=== PATIENT | male | born 1940 | race Caucasian/White ===

== ENCOUNTER 2019-04-16 05:20 | Inpatient (IN) | payer MEDICARE, SELFPAY ==
[2019-04-02 10:59] VITALS: BP 133/70; PULSE 61; RESP 16; TEMP 36.7; O2SAT 98; BMI 33.4
[2019-04-02 11:55] LABS: Absolute Lymphocyte Count 2.32 X10^3/uL (0.83-4.51); Absolute Neutrophil Count 5.7 X10^3/uL (2.0-7.7); Basophil# 0.05 X10^3/uL; Basophil% 0.5 % (0-1); Eosinophil# 0.15 X10^3/uL; Eosinophils% 1.6 % (0-5); Hemoglobin 14.4 g/dL (13.0-16.5); Lymphocyte # 2.32 X10^3/ul (4.0); Lymphocyte % 25.4 % (19-41); Mean Corp Hgb Conc 32.7 g/dL (32-36); Mean Corpuscular Hgb 28.9 pg (27.0-32.0); Mean Corpuscular Volume 88.4 fL (80-94); Mean Platelet Vol. 10.1 fl (6.2-12.0); Monocyte# 0.91 X10^3/uL; NRBC Flagged by Analyzer 0 % (0-5); Neutrophil # 5.67 X10^3/uL (2.7-7.7); Neutrophil % 62.2 % (47-70); Platelet Count 221 K/mm3 (150-450); RBC Distribution Width CV 12.7 % (11.6-14.6); RBC Distribution Width SD 41.2 fl (35.1-43.9); Red Blood Count 4.98 M/mm3 (4.6-6.2); White Blood Count 9.1 K/mm3 (4.4-11.0)
[2019-04-02 12:16] LABS: Anion Gap 8 (5-15); BUN 12 mg/dL (7-18); BUN/Creat Ratio 15.8 RATIO (10-20); Calcium,Total 8.5 mg/dL (8.5-10.1); Chloride 101 mmol/L (98-107); Creatinine, Serum 0.76 mg/dL (0.70-1.30); EST Glomerular Filtration Rate 106 mL/min (>60); Est Glom Filt Rate - Afr Amer 128 mL/min (>60); Estimated Creatinine Clearance 46.49 ml/min; Glucose 99 mg/dL (74-106); Potassium 4.2 mmol/L (3.5-5.1); Sodium Level 136 mmol/L (136-145)
--- NOTE | 2019-04-02 23:07 | HP.PCM_ITS ---
History and Physical History and Physical Patient Name: Tomás Mariscal : 1940 From: EVANGELINA ESPINAL PA-C DATE OF SURGERY: 04/16/2019 SCHEDULED PROCEDURE: left reverse total shoulder arthroplasty HISTORY OF PRESENT ILLNESS: Preoperative history and physical exam was performed on April 02, 2019. This is a 78-year-old male who has been having ongoing pain in his left shoulder. Pain is increased with any overhead activity. Patient is right-hand dominant. Pain does wake him occasionally at night. He has pain over the anterior should er. His limited motion and pain has now significantly affected his activities of daily living. Conservative measures consisting of physical therapy and cortisone injection with no relief. Patient currently denies chest pain, shortness of breath, fevers chills, recent infections. We have obtain surgical clearance from patient's primary care physician Dr. Galvan. Patient has a medical history pertinent for hypertension, asthma, sleep apnea, hypercholesterolemia, history of gout, benign prostatic hyperplasia, essential tremor. Patient has had chest x-ray, CT scan of the thorax by primary care physician. Patient does have moderate persistent asthma in which he is currently on medications. After failing conservative measures and discussing treatment options with Dr. Ulices Mcghee, the patient does wish to proceed with left reverse total shoulder arthroplasty. REVIEW OF SYSTEMS: ROS: Const: Denies change in appetite, fever and weight change. CV: Denies chest pain, heart murmur and irregular heartbeat. Resp: Reports cough, pneumonia, shortness of breath and wheezing, but denies tuberculosis. GI: Denies constipation, diarrhea, heartburn, nausea, rectal itching, bloody stools and vomiting. : Denies incontinence. Musculo: Reports weakness, but denies leg swelling and pain. Skin: Denies Raynaud's, history of shingles and tattoo. Neuro: Reports numbness/tingling but denies ambulatory dysfunction, dizziness and tremor. Psych: Denies anxiety, insomnia and stress. Eduin/Lymph: Denies anemia, bleeding/bruising tendency and past transfusion. Reviewed, no changes. PAST MEDICAL HISTORY: Advance Care Plan: Other Directive, POA Effective Date: 11/07/2018 Other Directive, LIVING WILL Effective Date: 11/07/2018 PMH: Medical Problems: Arthritis, Asthma, Emphysema, Gout, High Blood Pressure, Hypercholesterolemia, Sleep Apnea Accidents: None Surgical Hx: None Anesthesia Complications: None Assistive Devices: Glasses Reviewed, no changes. SOCIAL HISTORY: SH: Marital: .Occupation: Retired.Work Status: Retired.Hand Dominance: Right- handed. Personal Habits: Cigarette Use: Never Smoked Cigarettes.Smokeless Tobacco: Never Used Smokeless Tobacco.E-Cigarette Use: Never used.Alcohol: Weekly use.Drug Use: Denies Use.Enjoy Exercising: Daily. Reviewed and updated. VITALS: Ht: 61 Wt: 176lb Wt k.834 BMI: 33.3 BP: 138/74 Pulse: 74 Resp: 20 T: 96.8 T: 36.0C ALLERGIES: No Known Drug Allergy MEDICATIONS: Aspir-81 81 mg 1po qday, Super B-Complex 1po qday, Metoprolol Succinate ER 100 mg 1po qday, Atorvastatin Calcium 40 mg 1po qday, Amlodipine Besylate 5 mg 1po qday, Primidone 50 mg 2po qday, Multivitamin Adult 1 by mouth every day, Ventolin HFA 108 (90 Base) mcg/Act daily, Prednisone 10 mg as needed, Fluticasone Nasal [place] daily PRE-OP EXAM: General appearance:NORMAL Other: Eyes: Conjunctivae and lids: NORMAL Pupils: ERR Ears, Nose, Mouth, and Throat: NORMAL Other: Inspection of lips, teeth and gums: NORMAL Other: Neck: Examination of neck: no masses noted. Respiratory: Assessment of respiratory effort: NORMAL Other: Auscultation of lungs: clear to auscultation with wheezing on expiration, no rhonchi or rales. Cardiovascular: Auscultation of heart: regular rate and rhythm, no murmurs, gallops or rubs. Gastrointestinal: Exam of abdomen: soft, nontender, nondistended bowel sounds present. PHYSICAL EXAMINATION: Left shoulder is cold to touch without erythema or signs of infection. Patient does have tenderness to palpation of the anterior lateral left shoulder. Range of motion: Active forward elevation 60 on the left and passively 130, internal rotation L5 on the left and L3 on the right, external rotation 30 on the left and 40 on the right. Supraspinatus strength 3/5 on the left and 5/5 on the right. There is scapular dyskinesia on the left. Sensation intact to light touch. Neurovascularly intact. IMAGING STUDIES: Previous x-rays and MRI reveal severe rotator cuff tear arthropathy with retracted supraspinatus to the level of the glenohumeral joint with 70% fatty atrophy. X-rays reveal joint space narrowing with superior migration of the humeral head with subchondral sclerosis seen and Seen lesions on the undersurface of the acromion and lateral tuberosity. IMPRESSION: 1. Severe left shoulder glenohumeral osteoarthritis 2. Hypertension 3. Moderate persistent asthma 3. Sleep apnea 4. History gout 5. Hypercholesterolemia 6. Benign prostatic hyperplasia 7. Essential tremor PLAN: Dr. Ulices Mcghee did discuss and review with the patient all treatment options including surgical versus nonsurgical options. Patient does wish to proceed with the above-stated procedure. Potential risks, benefits, and complications of the procedure were discussed in detail including but not limited to , infection, nerve and blood vessel damage, persistent pain, numbness, tingling, paresthesias, blood clot, pulmonary embolism, and requirement for possible further surgery. The patient expressed full understanding and has no further questions for the doctor. Patient does agree to proceed with the above-stated procedure and has signed the surgery consent form. This dictation was created using voice recognition software. Phonetic and/or grammatical errors may exist. ___ I have re-examined the patient. There are no clinical changes since date of exam. ___ See progress notes for changes. ___ Dictated on admission Date: Time: Signature:
[2019-04-16] VITALS (16 sets, daily range): BP systolic 118–159; BP diastolic 61–82; PULSE 66–102; RESP 16–20; TEMP 36.3–37; O2SAT 88–100; BMI 33.4
[2019-04-16] MEDS: Lactated Ringers 1,000 ML 100 ML IV (06:05)
[2019-04-16] MEDS: Magnesium Sulfate 4gm/100mL 4 GM/100 ML IV.SOLN. IV (06:05)
[2019-04-16] MEDS: Celecoxib 200 MG Capsule 400 MG PO (06:06)
[2019-04-16] MEDS: Acetaminophen 500 MG Tablet 1000 MG PO ×3 (06:06→21:33)
[2019-04-16] MEDS: Gabapentin 600 MG Tablet PO (06:08)
[2019-04-16 06:35] LABS: Bedside Glucose 104 mg/dL (70-110)
--- NOTE | 2019-04-16 06:55 | RAD_ITS ---
STUDY: X-RAY - LEFT SHOULDER REASON FOR EXAM: Male, 78 years old. Total shoulder replacement. TECHNIQUE: 2 view(s) of the shoulder. COMPARISON: None. FINDINGS: The patient is status post left shoulder replacement. There is good alignment. Postoperative soft tissue changes. Mild increased markings at the left lung base suggestive of atelectasis. RAD/Shoulder min 2 Views IMPRESSION: Status post left shoulder replacement. There is good alignment. Postoperative soft tissue changes. Increased markings at the left lung base suggestive of atelectasis. Electronically Signed: Camilo Bolden, at 9:55 EST , Service support ,
[2019-04-16] MEDS: Cefazolin 2 GM in 0.9% Normal Saline 100 ML IV (07:12)
[2019-04-16] MEDS: dexAMETHasone 10 MG/ML Vial IV (07:42)
[2019-04-16] MEDS: Lactated Ringers 1,000 ML 125 ML IV (08:00)
--- NOTE | 2019-04-16 08:23 | OP.PCM_ITS ---
Report of Operation Date of Procedure: 04/16/19 Pre-Operative Diagnosis: Left shoulder cuff tear arthropathy Post-Operative Diagnosis: Left shoulder cuff tear arthropathy Surgery/Procedure Performed:: Left reverse total shoulder replacement Description of Surgical Findings:: Stable shoulder, subscapularis repaired investment accounting clerk: Alondra Solis Type of Anesthesia:: General Anesthesiologist: Quinton Walker Special Medications: 2 g Ancef, 1 g TXA at incision, 1 g TXA closure, 10 mg Decadron, joint cocktail (5 mg Duramorph, 30 mL of 0.5% Ropivicaine, 1000 units of epinephrine, 30 mg of Toradol), vancomycin at incision Specimen's removed: Bony cuts Estimated Blood Loss (mL): 100 Fluids Replaced: 300 mL crystalloid Description of Procedure: Components used 1. Maddi reunion glenoid baseplate 2. 36mm, +2 mm Glenosphere 3. 36mm, 4mm humeral liner 4. Reverse TSA humeral adapter tray 4]mm 5. [place] reunion short humeral stem primary press-fit 14mm size Brief history/Operative indications: 78 yo m with history of L shoulder pain and cuff tear arthropathy. Patient failed conservative measures as mentioned in the H&P. After discussion of risk and benefits of reverse total shoulder replacement including but not limited to blood loss, DVTs, PEs, nerve vessel damage, infection, general risk of anesthesia including loss of life, instability and stiffness patient demonstrating understanding wish to proceed was able to sign informed consent. Medical clearance was obtained. Procedure: On the date of the procedure, patient's L upper extremity was marked in the preoperative area. Patient was taken back to the operating room where they were placed on the table in the supine position. Anesthesia assumed control of the C-spine and airway, then administered anesthetic. All bony prominences were identified well-padded, the head was secured and the patient was placed in the beachchair position at about 35? inclination. Anesthesia remained in control of the C-spine airway throughout the remainder of the procedure. Patient was then appropriately fastened to the table and the L upper extremity was prepped in a sterile fashion. The surgeons then scrubbed. Upon reentering the room, the L upper extremity was draped in a sterile fashion and the incision was marked out. Timeout was called, everyone agreed upon the side, the site, the procedure to be performed, patient identity and antibiotics given. Incision was taken down through skin and subcutaneous tissue, fat down to fascia. The stripe of the deltopectoral interval and cephalic vein were identified and blunt dissection was used to retract the deltoid. The cephalic vein was retracted laterally. Clavipectoral fascia was then incised and a cobra retractor was placed in the wound. The proximal one third of the pectoralis major insertion was released. Pectoralis tendon insertion was used to tenodesed the biceps tendon which was identified in the bicipital groove. Tenodesis was done with #1 Vicryl. Proximally we followed the biceps tendon after transecting it into the rotator interval. The rotator interval was split and the arm was externally rotated. The split was 1 cm medial to the bicipital groove. Subscapularis tendon was released. We released down the anterior portion of the humeral head and a peck elevator was used to release the inferior portion of the humeral head. The arm was externally rotated and the shoulder was dislocated. The humeral head cut was made at anatomic retroversion. Once his humeral head cut was made humerus was retracted out of the way and the glenoid was exposed. After exposing the glenoid, the labrum and the remaining proximal biceps were debrided. At this time we are able to view the entire outer edge of the glenoid. A central pin was placed we sequentially reamed over this central pin to 36mm. Once this was completed the central pedicle was drilled. The glenoid baseplate was impacted into place. Wound was closely irrigated out with normal saline we then drilled sequentially for 2 screws. Screws were placed superiorly and inferiorly and tightened down the screws. Once the screws were appropriately tightened into place the glenoid baseplate was compressed against the exposed subchondral bone. A 36, +2 mm glenosphere was impacted into place engaging the [place] taper. Attention was then turned towards the humerus. The humerus was again externally rotated exposing the proximal portion of the humerus. Central canal finder was then used to open up the canal. We reamed to a 14mm reamer. We then broached to a 14mm stem. We trialed the 4mm liner, with the 4mm humeral baseplate. We obtained an adequate reduction at this time with a nice stable shoulder. Good internal rotation to the gluteus, forward elevation to 140?, external rotation to 30?. Final components were then assembled on the back table, trials were removed and the wound was copiously irrigated with normal saline after dislocating the shoulder. Once the final components were assembled they were impacted into place. Shoulder was then reduced and found to be stable with good range of motion. Subscapularis tendon was repaired. The wound was then lavaged with chlorhexidine for 1 minute followed by copiously irrigated out with a 1 L normal saline lavage. The deltopectoral fascia was then closed using #1 Vicryl skin was closed using 2-0 Vicryl interrupted sutures and final skin closure was done with 3-0 Monocryl. Steri-Strips are placed for final skin closure. Sterile dressing was placed patient was then placed in a sling and awakened by anesthesia. Patient was then transferred to the PACU for recovery. Postoperative plan: Patient will be admitted to the hospital overnight. They will get physical therapy starting in 2 weeks with normal postoperative regimen. Patient will be placed on aspirin daily for DVT prophylaxis. The first postoperative appointment will be in 2 weeks for wound check and initiation of phase 1 physical therapy. During the course of the procedure the physician faculty i on call medical assistant played a vital role. His intimate knowledge of my steps in the procedure aided in safe and expedient completion of the procedure. The PA played a vital rolls in positioning particularly in obtaining the appropriate beach chair position and securing the patient's body and head to the table. The PA was also vital in the retraction of soft tissues during the exposure and especially the glenoid work as this is a vital part of the procedure to prevent neurovascular damage. the PA was also vital and protecting soft tissues during times of bony cuts and reaming. He also played a vital role in closure with my direct supervision. The PA was also important during reduction and dislocation of the joint and trials intraoperatively. Grafts/Implants Used: Maddi reunion - Complications No intraoperative complications - Admit VTE Documentation VTE Present on Admission: No VTE Mechan Device Prophylaxis: SCD's, Knee High STEPHANIE Hose VTE Pharm Prophylaxis ordered?: Yes
[2019-04-16] MEDS: Ipratropium/Albuterol Sulfate 3 ML AMPUL.NEB INHALATION ×2 (12:26→19:35)
--- NOTE | 2019-04-16 13:43 | NURSING ---
Patient's pulse ox alarm was ringing in the 80's. Went in to check on patient and he was resting comfortably with eyes closed. This RN informed patient of alarm and that we needed to turn 02 up 1-2 L to get Sp02 higher. While in room checked vs, see intervention. Pulse ox was not able to be brought up with just a nasal cannula so the simple mask from surgery was placed and turned on to 8L. Pulse ox was still 81-82%. Jason from [facility] was called to room and he placed patient on a 100% non-rebreather mask. after being on mask for 3-4 minutes patient's 02 level gradually increased to 96-97%. Dr. Mcghee has been paged to update. Patient continues to sound moist, with extremely coarse lung sounds. RR easy and nonlabored t/o. Encouraged coughing and I/S.
--- NOTE | 2019-04-16 14:04 | CASEMGMT ---
As per pre-behavior specialist, pt has LW/POA and is his medical POA, declined to bring in the documents. ZACH Pitts
--- NOTE | 2019-04-16 14:28 | NURSING ---
Received call from Henrry Chaney and nurse Kayley was on the phone on behalf of Dr. Mcghee who was in surgery. This RN made him aware that patient was on a non-rebreather, 100% and 02 sats were 97%. His RR is 20-22, IVF have been SL. He ordered this nurse to stop ivf and consult medicine (he states he is scrubbed in surgery and will not be able to do a MD to MD consult at this time.) Dr. Everett was paged and made aware of same. He came to see patient. CXR, EKG and 40 mg lasix iv x1 was ordered.
--- NOTE | 2019-04-16 14:44 | EKG12_ITS ---
Test Reason : Blood Pressure : / mmHG Vent. Rate : 093 BPM Atrial Rate : 093 BPM P-R Int : 230 ms QRS Dur : 138 ms QT Int : 368 ms P-R-T Axes : 045 000 -08 degrees QTc Int : 457 ms Sinus rhythm with 1st degree A-V block Right bundle branch block Abnormal ECG No previous ECGs available Confirmed by MARILUZ CARVER, KENYON ([id number]), editor index KENNETH HILL ([id number]) on 04/20/2019 10:32:37 AM Referred By: Ulices Mcghee Confirmed By:VINCENT MCGRAW MD
--- NOTE | 2019-04-16 15:04 | CON.PCM_ITS ---
Problem List (1) Hypoxia Status: Acute (2) Status post reverse total arthroplasty of left shoulder Status: Acute (3) Emphysema of lung Status: Chronic (4) Asthma Status: Chronic (5) Hyperlipidemia Status: Chronic (6) Hypertension Status: Chronic Reason for Consult Date of Consultation: 04/16/19 Reason for Consultation: Postoperative hypoxia. History of Present Illness: The patient is a 78 year old M patient with past medical history as mentioned above who underwent elective left reverse total shoulder replacement today and I am seeing this patient in urgent consultation for postoperative hypoxia. According to the nursing staff, patient was on facemask and his pulse ox was in the 80s percent. He was started on nonrebreather mask and his oxygenation improved. Patient denied any significant worsening shortness of breath. He reported cough with difficulty expectorating sputum. He denied chest pain, palpitation, dizziness or lightheadedness. He denied fever or chills. He denies any significant left shoulder pain. He had a history of hypertension which has been under control with Norvasc and metoprolol. He has history of asthma and emphysema and he has been using inhalers and nebulizers at home in cluding DuoNeb, albuterol, Ellipta. He never been on oxygen at home and he never smoked in his life. He has history of hyperlipidemia and he has been on statins. At this time, patient is afebrile, blood pressure and heart rate are stable, not tachycardic or tachypneic, pulse ox is 97% on nonrebreather mask with 100% FiO2. Preoperative routine blood work that was done on April 10, 2019 reviewed and was unremarkable. Stat EKG done and showed normal sinus rhythm, first-degree AV block, RBBB without evidence of acute ischemic changes or cardiac arrhythmias. Patient chest x-ray done and revealed mild bilateral pulmonary vascular congestion. Past Medical History Past Medical History (Chronic Problems): Chronic Problems Emphysema of lung (Chronic) Asthma (Chronic) Hyperlipidemia (Chronic) Hypertension (Chronic) Allergies No Known Allergies Allergy (Verified 04/16/19 05:51) Home Medications: Ambulatory Orders Medication Instructions Recorded Albuterol Inhaler [Ventolin Hfa 2 puff INHALATION Q4H PRN PRN 04/02/19 (SP)] Amlodipine [Norvasc] 5 mg PO DAILY 04/02/19 Aspirin [Aspir-Low] 81 mg PO DAILY 04/02/19 Atorvastatin Calcium [Lipitor] 40 mg PO QHS 04/02/19 Cholecalciferol (VIT D3) [Vitamin 1,000 unit PO DAILY 04/02/19 D] Fluticasone 0.05% [Flonase Nasal 2 spray NASAL DAILY 04/02/19 [place]] Fluticasone/Umeclidin/Vilanter 1 puff IH DAILY 04/02/19 [Trelegy Ellipta 100-62.5-25] Ipratropium/Albuterol Sulfate 3 ml INHALATION Q6HWA.RT 04/02/19 [Duoneb] Metoprolol Tartrate [Lopressor 100 mg PO DAILY 04/02/19 (Beta Jahaira)] Multivitamin [Daily Vitamin 1 ea PO DAILY 04/02/19 Formula] Prednisone 10 mg PO PRN PRN 04/02/19 Primidone [Mysoline] 50 mg PO BID 04/02/19 Surgical History: no surgical history - Apart from today's surgery. Psychiatric History: No pertinent psych hx Lives: Spouse/ Significant Other Smoking Status: Never smoker Tobacco Use: Non-smoker Alcohol: None Drugs: None - *Family History Maternal History Items: No pertinent history Paternal History Items: No pertinent history Review of Systems Constitutional: Denies: Anorexia, Chills, Fever, Weakness Eyes: Denies: Blurred vision, Double vision, Drainage, Redness HEENT: Denies: Difficulty Hearing, Ear Pain, Eye Pain, Nasal Congestion, Sore Throat Cardiovascular: Denies: Chest Pain, Chest Pressure, Chest Tightness, Edema, Light Headedness, Palpitations, Syncope Respiratory: Reports: Cough. Denies: Pleuritic Pain, Shortness of Breath, Spu travis production, Wheezing Gastrointestinal: Denies: Abdominal Pain, Constipation, Diarrhea, Nausea, Vomiting Genitourinary: Denies: Dysuria, Frequency, Hematuria Musculoskeletal: Denies: Arm Pain, Back Pain, Foot Pain Skin: Denies: Dryness, Rash Neurological: Denies: Balance problems, Double vision, Change in Speech, Slurred speech, Confusion, Headaches, Incoordination, Numbness Psychiatric: Denies: Anxiety, Depression Endocrine: Denies: Change in Body Habitus, Polydipsia, Polyuria Patient Problems: Active and Suspected Problems Hypoxia (Acute) Status post reverse total arthroplasty of left shoulder (Acute) - Physical Exam Vitals/I&O's: Vital Signs Temp Pulse Resp BP Pulse Ox 98.1 F 86 20 H 118/62 97 04/16/19 14:28 04/16/19 14:28 04/16/19 14:28 04/16/19 14:28 04/16/19 14:28 Oxygen Flow Rate (L/min) 2 Oxygen Delivery Method Non-Rebreather Weight: 177 lb 0.499 oz Body Mass Index (BMI) 33.4 Intake and Output for Last 24 Hours 04/14/19 04/15/19 04/16/19 23:59 23:59 23:59 Intake Total 1904 Balance 1904 General: Alert, Oriented x3, Cooperative, No apparent distress HEENT: Atraumatic, PERRLA, EOMI, Normocephalic Oral: Moist Mucosa, No Gingival or Mucosal Lesions/ Ulcerations Neck: Supple, No JVD, Negative Carotid Bruits, Trachea Midline, Thyroid Normal Size and Texture Lungs: No wheeze, Diminished, Rales, Rhonchi, - - Decreased breath sounds b ilateral, bilateral crackles, rhonchi. Cardiovascular: Regular rate, Regular Rhythm, Normal S1, Normal S2, PMI Normal Abdomen: Bowel Sounds Present, Soft, Non Tender, Non-Distended, No Hepato- splenomegaly Extremities: No clubbing, No cyanosis, No edema Skin: No rashes, No breakdown Lymphatic: No Cervical, Supraclavicular, or Inguinal Adenopathy Neurological: Cranial nerves II-XII grossly intact, Motor Exam 5/5 strength throughout Psych/Mental Status: Normal Affect, Appropriate, Alert and oriented to time, place, person, mood and affect Laboratory Results 04/16/19 06:12: POC Glucose 104 Clinical Impression(s) from Imaging Studies Shoulder X-Ray 04/16/19 06:55 IMPRESSION: Status post left shoulder replacement. There is good alignment. Postoperative soft tissue changes. Increased markings at the left lung base suggestive of atelectasis. Electronically Signed: Camilo Bolden, at 9:55 EST , Service support , Current Medications Acetaminophen (Tylenol) 1,000 mg PO Q8 MARITZA Albuterol Sulfate (Ventolin Aerosols) 2.5 mg INHALATION Q4H PRN PRN PRN Reason: WHEEZING Albuterol/Ipratropium (Duoneb) 3 ml INHALATION Q6HWA.RT REPLACED BY [facility] Last Admin: 04/16/19 12:26 Dose: 3 ml Documented by: Amlodipine Besylate (Norvasc) 5 mg PO DAILY REPLACED BY [facility] Aspirin (Ecotrin) 325 mg PO DAILY@0800 REPLACED BY [facility] Atorvastatin Calcium (Lipitor) 40 mg PO QHS REPLACED BY [facility] Budesonide (Pulmicort Aerosol) 0.5 mg INHALATION Q12H.RT REPLACED BY [facility] Cholecalciferol (Vitamin D) 1,000 unit PO DAILYCM REPLACED BY [facility] Enteral Nutritional Formula (Ensure Surgery) 237 ml PO TIDCM REPLACED BY [facility] Famotidine (Pepcid) 20 mg PO DAILY REPLACED BY [facility] Fluticasone Propionate (Flonase Nasal [place]) 2 spray NASAL DAILY REPLACED BY [facility] Cefazolin Sodium () 1 gm in 50 mls @ 150 mls/hr IV Q8H REPLACED BY [facility] Stop: 04/16/19 23:19 Ketorolac Tromethamine (Toradol) 15 mg IV Q6H PRN PRN PRN Reason: Pain Score 1-5/10 Stop: 04/18/19 06:56 Meloxicam (Mobic) 7.5 mg PO BID REPLACED BY [facility] Metoprolol Tartrate (Lopressor (Beta Jahaira)) 100 mg PO DAILY REPLACED BY [facility] Morphine Sulfate () 2 - 4 mg IV Q2H PRN PRN PRN Reason: Pain Score 6-10/10 Morphine Sulfate () 2 - 4 mg IV Q2H PRN PRN PRN Reason: Pain Score 6-10/10 Multivitamins (Multivitamin) 1 tablet PO DAILY@0800 REPLACED BY [facility] Ondansetron HCl (Zofran) 4 mg IV Q8H PRN PRN PRN Reason: NAUSEA Primidone (Mysoline) 50 mg PO BID REPLACED BY [facility] Promethazine HCl (Phenergan) 12.5 mg IM Q6H PRN PRN; Protocol PRN Reason: NAUSEA/VOMITING Senna/Docusate Sodium (Senokot-S, Delmy-Colace) 2 tablet PO BID REPLACED BY [facility] Sodium Chloride () 10 - 40 ml IV UD PRN PRN Reason: SALINE FLUSH Tramadol HCl (Ultram) 50 - 100 mg PO Q6H PRN PRN PRN Reason: Pain Score 4-10/10 Assessment/Plan All Active Problems Hypoxia (Acute) Status post reverse total arthroplasty of left shoulder (Acute) This is a 78 years old male patient admitted to the hospital after he underwent elective reverse total left shoulder replacement today and I was asked to see the patient for urgent consultation for postoperative hypoxia. #1 postoperative hypoxia: Chest x-ray reviewed, revealed mild bilateral pulmonary vascular congestion. EKG showed no acute changes. Hypoxia is probably due to volume overload in context of history of asthma and emphysema. 1 dose of IV Lasix given. Plan: Incentive spirometer, chest physiotherapy, DC IV fluids, will give another dose of Lasix later tonight, ambulate when appropriate. #2 status post left reverse total shoulder replacement: Postoperative day 0. Patient is on IV morphine and tramadol as needed for pain. Apart from hypoxia, other vital signs are stable. He is on IV cefazolin for perioperative prophylaxis. Orthopedic surgery is managing. #3 asthma/emphysema: Plan as above, continue with DuoNeb every 6 hours, albuterol as needed, Pulmicort twice daily. #4 hypertension: Blood pressure stable, continue Norvasc and metoprolol. #5 hyperlipidemia: Continue statins. #6 DVT prophylaxis: SCDs. This note was generated with [employer] software. It may contain incorrect words, spelling, and punctuation that were not noted in checking the note before signing. Code Visit Inpatient E&M: 91979 Init Hosp L2
--- NOTE | 2019-04-16 15:20 | RAD_ITS ---
STUDY: X-RAY CHEST REASON FOR EXAM: Male, 78 years old. Shortness of breath and congestion. Recent post l eft shoulder replacement. TECHNIQUE: Single AP portable view of the chest. COMPARISON: None. FINDINGS: Mild degree of increased linear markings at the lung bases suggest bibasilar atelectasis worse on the left side. There is no demonstrated pleural abnormality. Normal size heart. Normal mediastinum and antonio. Normal visualized pulmonary arteries. There is atherosclerotic tortuosity of the aortic arch and descending thoracic aorta. Normal visualized thoracic spine. Status post left shoulder replacement. There is no demonstrated abnormality of the visualized soft tissue structures of the upper abdomen. RAD/Chest 1 View (Portable) IMPRESSION: Mild increased markings at the lung bases suggestive of bibasilar atelectasis worse on the left side. Electronically Signed: Camilo Bolden, at 15:38 EST , Service support ,
[2019-04-16] MEDS: 0.9% Saline Lock 10 ML Syringe IV ×2 (15:44→21:32)
[2019-04-16] MEDS: Furosemide 40 MG/4 ML Vial IV (15:44)
[2019-04-16] MEDS: Cefazolin 1 GM/50 ML BAG IV ×2 (15:51→23:20)
[2019-04-16] MEDS: Ensure Surgery 237 ML LIQUID PO (15:51)
[2019-04-16] MEDS: Multivitamins,Therapeutic Tablet 1 TABLET PO (15:51)
[2019-04-16] MEDS: Senna/Docusate Sodium 1 Tablet 2 TABLET PO ×2 (15:51→21:33)
[2019-04-16] MEDS: Primidone 50 MG Tablet PO ×2 (15:52→21:33)
[2019-04-16] MEDS: Famotidine 20 MG Tablet PO (15:52)
[2019-04-16] MEDS: Budesonide Respules 0.5 MG/2 ML AMPUL.NEB. INHALATION (19:35)
[2019-04-16] MEDS: Furosemide 20 MG/2 ML VIAL IV (21:32)
[2019-04-16] MEDS: Atorvastatin Calcium 40 MG Tablet PO (21:33)
[2019-04-17] VITALS (12 sets, daily range): BP systolic 123–136; BP diastolic 67–74; PULSE 68–87; RESP 16–20; TEMP 36.7; O2SAT 82–98
[2019-04-17 05:19] LABS: Hemoglobin 12.8 g/dL (13.0-16.5); Mean Corp Hgb Conc 32.8 g/dL (32-36); Mean Corpuscular Hgb 28.7 pg (27.0-32.0); Mean Corpuscular Volume 87.4 fL (80-94); Mean Platelet Vol. 10.4 fl (6.2-12.0); Platelet Count 203 K/mm3 (150-450); RBC Distribution Width SD 41.5 fl (35.1-43.9); Red Blood Count 4.46 M/mm3 (4.6-6.2)
[2019-04-17 05:30] LABS: Anion Gap 6 (5-15); BUN 18 mg/dL (7-18); BUN/Creat Ratio 19.6 RATIO (10-20); Calcium,Total 8.2 mg/dL (8.5-10.1); Chloride 100 mmol/L (98-107); Creatinine, Serum 0.92 mg/dL (0.70-1.30); EST Glomerular Filtration Rate 85 mL/min (>60); Est Glom Filt Rate - Afr Amer 103 mL/min (>60); Estimated Creatinine Clearance 50.53 ml/min; Glucose 143 mg/dL (74-106); Potassium 3.9 mmol/L (3.5-5.1); Sodium Level 133 mmol/L (136-145)
[2019-04-17] MEDS: Acetaminophen 500 MG Tablet 1000 MG PO ×2 (06:05→13:14)
[2019-04-17] MEDS: Ipratropium/Albuterol Sulfate 3 ML AMPUL.NEB INHALATION ×2 (06:50→13:35)
[2019-04-17] MEDS: Budesonide Respules 0.5 MG/2 ML AMPUL.NEB. INHALATION (06:51)
--- NOTE | 2019-04-17 07:24 | PN_ITS ---
Patient Problems: Active and Suspected Problems Hypoxia (Acute) Status post reverse total arthroplasty of left shoulder (Acute) Subjective: Patient overnight and following operative intervention had postoperative hypoxia felt secondary to underlying asthma and COPD as well as resuscitation overload while in the OR. Patient ministered Lasix 40 mg IV x1 as well as 20 mg IV x1 day prior with clinical improvement and improved appearance of chest x-ray. Patient has had longstanding pulmonary disease and is interested in transiti oning to business transformation analyst and [facility] and notes that he recently was looking into information. He states that he most recently had pulmonary function testing at [facility]. Patient notes that he is breathing better, moving with greater ease, expected discomfort to left upper extremity given recent shoulder replacement. Patient denies fevers, chills, nausea, emesis, abdominal pain, chest pain or worsened or recurrent dyspnea. Objective: Physical Examination: General: awake, alert, oriented x 3 and cooperative, seated upright in the [facility] chair, no acute distress. Skin: normal color, turgor, no icterus, cyanosis, status post left total shoulder replacement with dressing and arm sling in place.. HEENT: AT/NC, EOMI, PERRLA, MMM, no carotid bruits or JVD noted. Lungs: Diminished breath sounds, greater bases, mildly coarse, unclear baseline, no obvious wheezing or rhonchi. Heart: Regular rate and rhythm; no gallop, rub audible. Abdomen: soft, obese, NTTP, ND, normal BS. Extremities: no cyanosis, clubbing, or notable extremity edema, status post left total shoulder replacement, moving fingers and hands, some mild hand edema but minimal. Neurological: patient awake, alert, oriented x 3; cognitive function intact; pupils equally reactive to light and accomodation; cranial nerves II-XII grossly normal, moving all 4 extremities but minimal to left upper extremity with only requested hand movement, peripheral pulses intact, status post recent left total shoulder replacement, strength accordingly moderately to severely global de crease. Psychiatric: affect appears normal, no acute evidence of depressive or anxiety feelings. Vitals/I&O's: Vital Signs Temp Pulse Resp BP Pulse Ox 98.1 F 75 18 127/67 H 96 04/17/19 03:40 04/17/19 06:51 04/17/19 06:51 04/17/19 03:40 04/17/19 06:51 Oxygen Flow Rate (L/min) 2 Oxygen Delivery Method Nasal Cannula Weight: 177 lb 0.499 oz Body Mass Index (BMI) 33.4 Intake and Output for Last 24 Hours 04/15/19 04/16/19 04/17/19 23:59 23:59 23:59 Intake Total 2655 / 2655 400 / 400 Output Total 1125 / 1125 250 / 250 Balance 1530 / 1530 150 / 150 Laboratory Results 04/17/19 05:00: WBC 19.0 H, RBC 4.46 L, Hgb 12.8 L, Hct 39.0 L, MCV 87.4, MCH 28.7, MCHC 32.8, RDW Std Deviation 41.5, RDW Coeff of Taylor 13.0, Plt Count 203, MPV 10.4 04/17/19 05:00: Sodium 133 L, Potassium 3.9, Chloride 100, Carbon Dioxide 27.0, Anion Gap 6, BUN 18, Creatinine 0.92, Estim Creat Clear Calc 50.53, Est GFR (MDRD) Af Amer 103, Est GFR (MDRD) Non-Af 85, BUN/Creatinine Ratio 19.6, Glucose 143 H, Calcium 8.2 L Current Medications Acetaminophen (Tylenol) 1,000 mg PO Q8 [facility] Last Admin: 04/17/19 06:05 Dose: 1,000 mg Documented by: Albuterol Sulfate (Ventolin Aerosols) 2.5 mg INHALATION Q4H PRN PRN PRN Reason: WHEEZING Albuterol/Ipratropium (Duoneb) 3 ml INHALATION Q6HWA.RT [facility] Last Admin: 04/17/19 06:50 Dose: 3 ml Documented by: Amlodipine Besylate (Norvasc) 5 mg PO DAILY MARITZA Aspirin (Ecotrin) 325 mg PO DAILY@0800 MARITZA Atorvastatin Calcium (Lipitor) 40 mg PO QHS [facility] Last Admin: 04/16/19 21:33 Dose: 40 mg Documented by: Budesonide (Pulmicort Aerosol) 0.5 mg INHALATION Q12H.RT [facility] Last Admin: 04/17/19 06:51 Dose: 0.5 mg Documented by: Cholecalciferol (Vitamin D) 1,000 unit PO DAILYCM [facility] Last Admin: 04/16/19 15:52 Dose: 1,000 unit Documented by: Enteral Nutritional Formula (Ensure Surgery) 237 ml PO TIDCM [facility] Last Admin: 04/16/19 16:49 Dose: Not Given Documented by: Famotidine (Pepcid) 20 mg PO DAILY [facility] Last Admin: 04/16/19 15:52 Dose: 20 mg Documented by: Fluticasone Propionate (Flonase Nasal [place]) 2 spray NASAL DAILY [facility] Last Admin: 04/16/19 15:52 Dose: Not Given Documented by: Ketorolac Tromethamine (Toradol) 15 mg IV Q6H PRN PRN PRN Reason: Pain Score 1-5/10 Stop: 04/18/19 06:56 Meloxicam (Mobic) 7.5 mg PO BID [facility] Metoprolol Tartrate (Lopressor (Beta Jahaira)) 100 mg PO DAILY [facility] Morphine Sulfate () 2 - 4 mg IV Q2H PRN PRN PRN Reason: Pain Score 6-10/10 Morphine Sulfate () 2 - 4 mg IV Q2H PRN PRN PRN Reason: Pain Score 6-10/10 Multivitamins (Multivitamin) 1 tablet PO DAILY@0800 [facility] Last Admin: 04/16/19 15:51 Dose: 1 tablet Documented by: Ondansetron HCl (Zofran) 4 mg IV Q8H PRN PRN PRN Reason: NAUSEA Primidone (Mysoline) 50 mg PO BID [facility] Last Admin: 04/16/19 21:33 Dose: 50 mg Documented by: Promethazine HCl (Phenergan) 12.5 mg IM Q6H PRN PRN; Protocol PRN Reason: NAUSEA/VOMITING Senna/Docusate Sodium (Senokot-S, Delmy-Colace) 2 tablet PO BID [facility] Last Admin: 04/16/19 21:33 Dose: 2 tablet Documented by: Sodium Chloride () 10 - 40 ml IV UD PRN PRN Reason: SALINE FLUSH Last Admin: 04/16/19 21:32 Dose: 10 ml Documented by: Tramadol HCl (Ultram) 50 - 100 mg PO Q6H PRN PRN PRN Reason: Pain Score 4-10/10 STROKE Vital Signs/Narrative: Vital Signs Temp Pulse Resp BP Pulse Ox 04/17/19 06:51 75 18 96 04/17/19 06:19 96 04/17/19 05:55 82 04/17/19 03:49 98 04/17/19 03:40 98.1 F 87 20 H 127/67 H 97 Medical Necessity - Tobacco Use Smoking Status: Never smoker Tobacco Use: Non-smoker Assessment/Plan All Active Problems Hypoxia (Acute) Status post reverse total arthroplasty of left shoulder (Acute) The patient is a 78 y/o M w/ PMHx: HTN, HLD, Asthma/COPD, OA who presents to the [facility] on 04/16/19 for planned elective left reverse total shoulder replacement per Dr. Mcghee with noted postoperative hypoxia. 1. Severe Osteoarthritis, left shoulder: Failed conservative therapies and treatments, admitted per Dr. Mcghee for planned left reverse total shoulder replacement, post-operative pain management, bowel regimen, DVT Prophylaxis, PT/OT/CM per Orthopedic surgery discretion. 2. Postoperative hypoxia with asthma/COPD, Possible Resuscitation Overload: Currently maintained on budesonide, DuoNebs, PRN albuterol, encourage head of bed, I-S, cough and deep breath exercises, chest x-ray with mild bilateral vascular congestion, EKG with no acute evidence of ischemia, IV Lasix x2 doses administered upon evaluation day prior, remain off IV fluids, encourage out of bed. Repeat chest x-ray following diuresis with noted mild increased markings lung bases suggestive of atelectasis, left greater than right. Expect continued improvement, but to be cautious will obtain ECHO, oxygenation assessment with activity also. If unremarkable, would be appropriate for discharge to home per discussion with Orthopedic surgery. 3. Hypertension: Continue home regimen including Norvasc, metoprolol, PRN hydralazine. 4. Hyperlipidemia: Continue home statin regimen. 5. GERD: Continue famotidine. 6. DVT prophylaxis: SCDs, aspirin therapy per orthopedic discretion. Code Visit Inpatient E&M: 25801 Subs Hosp L2
[2019-04-17] MEDS: Multivitamins,Therapeutic Tablet 1 TABLET PO (07:58)
[2019-04-17] MEDS: Aspirin E.C. 325 MG Tablet PO (07:58)
[2019-04-17] MEDS: Fluticasone 0.05% 1 SPRAY NASAL.SRY 2 SPRAY NASAL (07:59)
[2019-04-17] MEDS: amLODIPine 5 MG Tablet PO (08:01)
[2019-04-17] MEDS: Primidone 50 MG Tablet PO (08:01)
[2019-04-17] MEDS: Famotidine 20 MG Tablet PO (08:01)
[2019-04-17] MEDS: Senna/Docusate Sodium 1 Tablet 2 TABLET PO (08:01)
[2019-04-17] MEDS: Ensure Surgery 237 ML LIQUID PO ×2 (08:02→13:13)
--- NOTE | 2019-04-17 08:14 | ECHOCS_ITS ---
Reason For Study: DYSPNEA Procedure This was a 2D Doppler, Color Flow transthoracic echocardiogram. The study was technically limited. The exam was of poor technical quality due to Pt s/p total left shoulder repl.. Pt has arm stabilizer s/p shoulder repl- laying supine with brace to left side. Exam performed portable in patient room. Left Ventricle Normal LV size. The estimated ejection fraction is 65 %. No evidence for diastolic dysfunction. No regional wall motion abnormalities noted. Right Ventricle Normal RV size. Normal systolic function. Atria Normal left atrium. Normal right atrium. No doppler evidence for ASD. Mitral Valve There is no mitral valve stenosis. No mitral valve insufficiency. Tricuspid Valve There is no tricuspid stenosis. Unable to estimate RV systolic pressure due to insufficient tricuspid regurgitant envelope. Aortic Valve Trisinus/trileaflet aortic valve. There is no aortic stenosis. No aortic valve insufficiency. Pulmonic Valve There is no pulmonic valvular stenosis. No pulmonic valve insufficiency. Great Vessels Normal aortic root. Pericardium/Pleural No pericardial effusion. Medication Diluted definity 2.0ml given slow IV push to enhance endocardial definition. MMode/2D Measurements & Calculations LVIDd: 3.2 cm IVSd: 1.1 cm LVOT diam: 2.0 cm LVIDs: 2.3 cm LVPWd: 1.1 cm RVDd: 2.7 cm FS: 27.7 % LVOT area: 3.1 cm2 LAV(MOD-sp4): 43.6 ml LA A4 area: 16.0 cm2 RA A4 area: 16.5 cm2 Time Measurements MV dec time: 0.28 sec Doppler Measurements & Calculations MV E max garo: 62.0 cm/sec Lat Peak E' Garo: 8.1 cm/sec Med Peak E' Garo: 5.6 cm/sec MV A max garo: 76.3 cm/sec E/E' lat: 7.7 E/E' med: 11.2 MV E/A: 0.81 LV V1 max: 98.8 cm/sec PA V2 max: 61.5 cm/sec LV V1 max P.9 mmHg Interpretation Summary The study was technically difficult. Diluted definity 2.0ml given slow IV push to enhance endocardial definition. The estimated ejection fraction is 65 %. No evidence for diastolic dysfunction. The study was technically difficult. Ordering Physician: Dary Lott Referring Physician: JUAN NYE Performed By: Vinita Kay, KI, RVT
--- NOTE | 2019-04-17 08:27 | PCM.PN.ORT ---
Patient Problems: Active and Suspected Problems Hypoxia (Acute) Status post reverse total arthroplasty of left shoulder (Acute) Subjective: The patient was sitting in bedside chair upon examination. Patient denies any chest pain, shortness of breath, dizziness, lightheadedness, nausea or vomiting, or calf pain. Pain is controlled on medications. No adverse overnight events. Patient postoperatively did have hypoxia in which pulse ox was in the 80%. Patient was started yesterday on a non-rebreather mask and oxygenation improved. Patient has been using nasal oxygen overnight. This was taken off this morning and at rest pulse ox was at 93%. Patient does have medical history pertinent for emphysema and asthma. He does take medications at home. Patient denies any home use of oxygen. He has never been seen by box spring frame builder. He has been managed by his primary care physician. Patient states since being taken off the oxygen this morning he has not had any chest pain or shortness of breath. Patient states the shoulder is doing well. He has minimal pain. Denies any numbness and tingling. Objective: Vital signs stable, afebrile. 93% oxygen saturation at room air Dressing is clean, dry, intact Ultra-sling fitting appropriately Sensation intact to axillary, radial, median, and ulnar distribution Motor intact to AIN, PIN, and ulnar nerve - Physical Exam Vitals/I&O's: Vital Signs Temp Pulse Resp BP Pulse Ox 98.1 F 87 20 H 127/67 H 95 04/17/19 03:40 04/17/19 07:39 04/17/19 07:39 04/17/19 03:40 04/17/19 08:13 Oxygen Flow Rate (L/min) 2 Oxygen Delivery Method Room Air Weight: 80.3 kg Body Mass Index (BMI) 33.4 Intake and Output for Last 24 Hours 04/15/19 04/16/19 04/17/19 23:59 23:59 23:59 Intake Total 2655 / 2655 400 / 400 Output Total 1125 / 1125 250 / 250 Balance 1530 / 1530 150 / 150 General: Alert, Oriented x3, Cooperative, No apparent distress Laboratory Results 04/17/19 05:00: WBC 19.0 H, RBC 4.46 L, Hgb 12.8 L, Hct 39.0 L, MCV 87.4, MCH 28.7, MCHC 32.8, RDW Std Deviation 41.5, RDW Coeff of Taylor 13.0, Plt Count 203, MPV 10.4 04/17/19 05:00: Sodium 133 L, Potassium 3.9, Chloride 100, Carbon Dioxide 27.0, Anion Gap 6, BUN 18, Creatinine 0.92, Estim Creat Clear Calc 50.53, Est GFR (MDRD) Af Amer 103, Est GFR (MDRD) Non-Af 85, BUN/Creatinine Ratio 19.6, Glucose 143 H, Calcium 8.2 L Current Medications Acetaminophen (Tylenol) 1,000 mg PO Q8 [facility] Last Admin: 04/17/19 06:05 Dose: 1,000 mg Documented by: Albuterol Sulfate (Ventolin Aerosols) 2.5 mg INHALATION Q4H PRN PRN PRN Reason: WHEEZING Albuterol/Ipratropium (Duoneb) 3 ml INHALATION Q6HWA.RT [facility] Last Admin: 04/17/19 06:50 Dose: 3 ml Documented by: Amlodipine Besylate (Norvasc) 5 mg PO DAILY [facility] Last Admin: 04/17/19 08:01 Dose: 5 mg Documented by: Aspirin (Ecotrin) 325 mg PO DAILY@0800 [facility] Last Admin: 04/17/19 07:58 Dose: 325 mg Documented by: Atorvastatin Calcium (Lipitor) 40 mg PO QHS [facility] Last Admin: 04/16/19 21:33 Dose: 40 mg Documented by: Budesonide (Pulmicort Aerosol) 0.5 mg INHALATION Q12H.RT [facility] Last Admin: 04/17/19 06:51 Dose: 0.5 mg Documented by: Cholecalciferol (Vitamin D) 1,000 unit PO DAILYCM [facility] Last Admin: 04/17/19 07:59 Dose: 1,000 unit Documented by: Enteral Nutritional Formula (Ensure Surgery) 237 ml PO TIDCM [facility] Last Admin: 04/17/19 08:02 Dose: 237 ml Documented by: Famotidine (Pepcid) 20 mg PO DAILY [facility] Last Admin: 04/17/19 08:01 Dose: 20 mg Documented by: Fluticasone Propionate (Flonase Nasal [place]) 2 spray NASAL DAILY [facility] Last Admin: 04/17/19 07:59 Dose: 2 spray Documented by: Ketorolac Tromethamine (Toradol) 15 mg IV Q6H PRN PRN PRN Reason: Pain Score 1-5/10 Stop: 04/18/19 06:56 Meloxicam (Mobic) 7.5 mg PO BID [facility] Metoprolol Tartrate (Lopressor (Beta Jahaira)) 100 mg PO DAILY [facility] Morphine Sulfate () 2 - 4 mg IV Q2H PRN PRN PRN Reason: Pain Score 6-10/10 Morphine Sulfate () 2 - 4 mg IV Q2H PRN PRN PRN Reason: Pain Score 6-10/10 Multivitamins (Multivitamin) 1 tablet PO DAILY@0800 [facility] Last Admin: 04/17/19 07:58 Dose: 1 tablet Documented by: Ondansetron HCl (Zofran) 4 mg IV Q8H PRN PRN PRN Reason: NAUSEA Primidone (Mysoline) 50 mg PO BID [facility] Last Admin: 04/17/19 08:01 Dose: 50 mg Documented by: Promethazine HCl (Phenergan) 12.5 mg IM Q6H PRN PRN; Protocol PRN Reason: NAUSEA/VOMITING Senna/Docusate Sodium (Senokot-S, Delmy-Colace) 2 tablet PO BID [facility] Last Admin: 04/17/19 08:01 Dose: 2 tablet Documented by: Sodium Chloride () 10 - 40 ml IV UD PRN PRN Reason: SALINE FLUSH Last Admin: 04/16/19 21:32 Dose: 10 ml Documented by: Tramadol HCl (Ultram) 50 - 100 mg PO Q6H PRN PRN PRN Reason: Pain Score 4-10/10 Medical Necessity - Tobacco Use Smoking Status: Never smoker Tobacco Use: Non-smoker Assessment/Plan All Active Problems Hypoxia (Acute) Status post reverse total arthroplasty of left shoulder (Acute) 1. S/P left reverse total shoulder arthroplasty POD #1 2. Continue Pain Medications: Tylenol and tramadol 3. DVT Prophylaxis: Aspirin 325 mg once daily for 2 weeks postoperatively 4. PT/OT: Continue with UltraSling at all times, okay to come out 3 times daily to work on elbow range of motion and pendulum exercises only. No range of motion of the left shoulder. Patient will begin outpatient formal physical therapy after his 2-week postoperative visit. 5. H & H: 12.8/39.0, asymptomatic 6. Reactive leukocytosis: Currently 19.0, afebrile. Patient did receive Decadron intraoperatively. 7. Encouraged Incentive Spirometry 8. Continue postoperative medical management per medicine: Patient did sustain postoperative hypoxia with history of asthma and emphysema. Case was discussed with Dr. Lott and patient will go forward with some further testing this morning. If patient tolerates testing plan will be for possible discharge home this afternoon. Patient was instructed to follow-up with his primary care physician within the next 5 days. 9. Disposition: Orthopedically stable with regards to the left shoulder. Plan will be for possible discharge home today if patient tolerates pulmonary testing and oxygen saturation does not drop. Patient has never been on home oxygen. Does have a history of emphysema and asthma. He will continue with his current medications. Patient was advised to follow-up with his primary care physician in the next 5 days. We also discussed the possibility of pulmonary involvement in the future. Prescriptions will be E scribed to the [facility]. Patient will follow-up per postop instructions. Patient does have outpatient physical therapy established. Also discussed with patient to continue with the incentive spirometry every hour postoperatively. I have reviewed the [place] Automated Rx Reporting System (OARRS) report for this patient for refill pattern and other prescriber involvement as part of the appropriate surveillance for the provision of acute and chronic controlled medications. The report was requested and reviewed on the date of this entry and was considered in the prescribing process.
--- NOTE | 2019-04-17 08:38 | DCINST_ITS ---
Discharge Diet: No Restrictions Discharge Activity: May Not Drive May shower in (days): 1 - Okay to shower and get wet if dressing is intact to skin. Turn dressing away from water Ice area for (Minutes): 20 - Every 1-2 hours while awake Weight Bearing Status: No weight bearing - Left upper extremity Call your doctor if your incision/area has: Continuous Slow Oozing, Sudden Increased Bleeding, Increased Pain/ Swelling, Increased Redness, Foul Smelling Discharge Call your doctor if you observe: Fever of 101 or Higher, Coldness, Increased Pain, Numbness or Tingling, Change in Color Remove Dressing in (days):: 4 - Okay to remove dressing on April 21, 2019 Instructions: Understanding Asthma, What Is COPD?, Care for COPD, Treatments for COPD Additional Instructions: Follow orthopedic postop instructions Allergies/Adverse Reactions: Allergies No Known Allergies Allergy (Verified 04/16/19 05:51) Medications to take at Discharge Albuterol Inhaler [Ventolin Hfa] 2 puff INHALATION Q4H PRN PRN 04/02/19 Amlodipine [Norvasc] 5 mg PO DAILY 04/02/19 Atorvastatin Calcium [Lipitor] 40 mg PO QHS 04/02/19 Cholecalciferol (VIT D3) [Vitamin D3] 1,000 unit PO DAILY 04/02/19 Fluticasone 0.05% [Flonase Nasal [place]] 2 spray NASAL DAILY 04/02/19 Fluticasone/Umeclidin/Vilanter [Trelegy Ellipta 100-62.5-25] 1 puff IH DAILY 04/02/19 Ipratropium/Albuterol Sulfate [Duoneb] 3 ml INHALATION Q6HWA.RT 04/02/19 Metoprolol Tartrate [Lopressor (beta mukesh)] 100 mg PO DAILY 04/02/19 Multivitamin [Daily Vitamin Formula] 1 ea PO DAILY 04/02/19 Prednisone 10 mg PO PRN PRN 04/02/19 Primidone [Mysoline] 50 mg PO BID 04/02/19 Acetaminophen [Tylenol] 1,000 mg PO Q8 #100 tab 04/17/19 Aspirin E.C. [Ecotrin] 325 mg PO DAILY@0800 #14 tab 04/17/19 Famotidine [Pepcid] 20 mg PO DAILY #14 tab 04/17/19 Senna/Docusate Sodium [Senokot-S] 2 tab PO BID #10 tab 04/17/19 traMADol [Ultram] 50 - 100 mg PO Q6H PRN PRN 6 Days #48 tab 04/17/19 The following prescriptions were given: Aspirin E.C. [Ecotrin] 325 mg PO DAILY@0800 #14 tab Transmission Status: Received by [facility] Famotidine [Pepcid] 20 mg PO DAILY #14 tab Transmission Status: Received by [facility] Senna/Docusate Sodium [Senokot-S] 2 tab PO BID #10 tab Transmission Status: Received by [facility] Acetaminophen [Tylenol] 1,000 mg PO Q8 #100 tab Transmission Status: Received by [facility]48 traMADol [Ultram] 50 - 100 mg PO Q6H PRN PRN 6 Days #48 tab PRN Reason: Pain Score 4-10/10 Transmission Status: Received by [facility] Primary Care Physician: Pito Galvan MD [Primary Care Provider] - Please follow up with your Primary Care Physician in: within the next 5 days Test Results: Test results from this visit will be discussed in further detail at your follow- up appointment, if applicable. Please Follow Up With: Flynn Lowe PA-C When: 04/30/19 @ 9:15 am Please Follow Up With: Shikha Wolf Physical Therapy When: 04/30/19 @ 10:00 am with Leo
--- NOTE | 2019-04-17 08:55 | DCINST_ITS ---
- Discharge Diagnoses Current Active Problems: Current Active and Chronic Problems 1. Status post reverse total arthroplasty of left shoulder (Acute) 2. Postoperative hypoxia with asthma/COPD, Possible Resuscitation Overload 3. Hypertension 4. Hyperlipidemia 5. GERD 6. Obesity You will use the following diet at home:: Cardiac Your food should be the consistency of: Regular Your liquids should be the consistency of: Regular/Thin Discharge Activity: May Not Drive, - - Continue aggressive ice machine application, rotating 20 min on and off throughout the day. May shower in (days): 1 - Okay to shower and get wet if dressing is intact to skin. Turn dressing away from water Ice area for (Minutes): 20 - Every 1-2 hours while awake Weight Bearing Status: No weight bearing - Left upper extremity Call your doctor if your incision/area has: Continuous Slow Oozing, Sudden Increased Bleeding, Increased Pain/ Swelling, Increased Redness, Foul Smelling Discharge Call your doctor if you observe: Fever of 101 or Higher, Coldness, Increased Pain, Numbness or Tingling, Change in Color, Inability to urinate, Inability to have a bowel movement, Shortness of breath, Dizziness, Fainting spells, Chest pain, Uncontrolled pain Remove Dressing in (days):: 4 - Okay to remove dressing on April 21, 2019 Instructions: What Is COPD?, Care for COPD, Treatments for COPD, Understanding Asthma Additional Instructions: Given lasix usage for volume resuscitation overload during admission please have repeat basic metabolic panel at follow-up with your primary care physician in 3-5 days. Allergies/Adverse Reactions: Allergies No Known Allergies Allergy (Verified 04/16/19 05:51) Medications to take at Discharge Albuterol Inhaler [Ventolin Hfa] 2 puff INHALATION Q4H PRN PRN 04/02/19 Amlodipine [Norvasc] 5 mg PO DAILY 04/02/19 Atorvastatin Calcium [Lipitor] 40 mg PO QHS 04/02/19 Cholecalciferol (VIT D3) [Vitamin D3] 1,000 unit PO DAILY 04/02/19 Fluticasone 0.05% [Flonase Nasal [place]] 2 spray NASAL DAILY 04/02/19 Fluticasone/Umeclidin/Vilanter [Trelegy Ellipta 100-62.5-25] 1 puff IH DAILY 04/02/19 Ipratropium/Albuterol Sulfate [Duoneb] 3 ml INHALATION Q6HWA.RT 04/02/19 Metoprolol Tartrate [Lopressor (beta mukesh)] 100 mg PO DAILY 04/02/19 Multivitamin [Daily Vitamin Formula] 1 ea PO DAILY 04/02/19 Prednisone 10 mg PO PRN PRN 04/02/19 Primidone [Mysoline] 50 mg PO BID 04/02/19 Acetaminophen [Tylenol] 1,000 mg PO Q8 #100 tab 04/17/19 Aspirin E.C. [Ecotrin] 325 mg PO DAILY@0800 #14 tab 04/17/19 Famotidine [Pepcid] 20 mg PO DAILY #14 tab 04/17/19 Senna/Docusate Sodium [Senokot-S] 2 tab PO BID #10 tab 04/17/19 traMADol [Ultram] 50 - 100 mg PO Q6H PRN PRN 6 Days #48 tab 04/17/19 The following prescriptions were given: Aspirin E.C. [Ecotrin] 325 mg PO DAILY@0800 #14 tab Transmission Status: Received by [facility] Famotidine [Pepcid] 20 mg PO DAILY #14 tab Transmission Status: Received by [facility]48 Senna/Docusate Sodium [Senokot-S] 2 tab PO BID #10 tab Transmission Status: Received by [facility] Acetaminophen [Tylenol] 1,000 mg PO Q8 #100 tab Transmission Status: Received by [facility] 1448 traMADol [Ultram] 50 - 100 mg PO Q6H PRN PRN 6 Days #48 tab PRN Reason: Pain Score 4-10/10 Transmission Status: Received by [facility]48 Primary Care Physician: Pito Galvan MD [Primary Care Provider] - Please follow up with your Primary Care Physician in: within the next 5 days Test Results: Test results from this visit will be discussed in further detail at your follow- up appointment, if applicable. Please Follow Up With: Flynn Lowe PA-C When: 04/30/19 @ 9:15 am Please Follow Up With: Shikha Wolf Physical Therapy When: 04/30/19 @ 10:00 am with Leo Please Follow Up With: Rashad Langston DO When: Please follow-up to establish for COPD/Asthma, prefer within 4-6 weeks. Proposed Discharge Date: 04/17/19
--- NOTE | 2019-04-17 09:40 | NURSING ---
Addendum entered by Ansley Arroyo 04/17/19 11:15: to be completed CHERELLE. Depending on result plan to d/c pt home today. Original Note: Dr. Lott called this RN to request echo
--- NOTE | 2019-04-17 10:17 | NURSING ---
echo being performed at bedside
[2019-04-17] MEDS: Furosemide 20 MG/2 ML VIAL IV (11:29)
[2019-04-17] MEDS: Metoprolol Tartrate 100 MG Tablet PO (11:29)
--- NOTE | 2019-04-17 11:50 | CASEMGMT ---
RN KHANH Face to Face with patient for initial transition planning/care coordination assessment. RN CM introduced self and role at [facility]. Patient lying in bed, alert and oriented, family at bedside. Patient willing to participate in assessment and is able to answer all questions appropriately. Care providers, pharmacy, and demographics verified. Patient wishes to discharge home, denies need for home health at this time. Patient states he has no further needs or concerns at this time. CM to follow for discharge planning needs that may arise. PCP: Mandy Specialists: wilda Mcghee Pharmacy: [facility] Retail Insurance: [employer] Prescription Benefit: yes Living Will/HPOA: yes, Kristi Mariscal LNOK: Living Arrangements: Patient lives with in single story home with ramp to enter the home. Transportation: DME/HHC: Patient has shower chair, cane, crutches, walker, and nebulizer at home. Disposition Plan: Patient to discharge home with family support and follow-up plans in place. Yasmin DAMON, RN, CM
== END 2019-04-17 15:40 | disposition home or self-care (01) | DRG 483 ==
LOC: ACINP 05:22 → MS3 08:14
PROVIDERS: Admitting Provider Specialist; Family Provider Family Medicine; PCP Family Medicine; Referring Provider Specialist; Visit Provider Family Medicine
PROC: 0RRK00Z Replacement of Left Shoulder Joint with Reverse Ball and Socket Synthetic Substitute, Open Approach (ICD-10-PCS; CPT 23472; principal; 2019-04-16 06:45)
DX: M12.812 Other specific arthropathies, not elsewhere classified, left shoulder (principal); M75.102 Unspecified rotator cuff tear or rupture of left shoulder, not specified as traumatic; J43.9 Emphysema, unspecified; R09.02 Hypoxemia; J45.40 Moderate persistent asthma, uncomplicated; I10 Essential (primary) hypertension; G25.0 Essential tremor; N40.0 Benign prostatic hyperplasia without lower urinary tract symptoms; E78.00 Pure hypercholesterolemia, unspecified; G47.30 Sleep apnea, unspecified
CPT/HCPCS: 36415; 71045; 73030; 80048; 82962; 85025; 85027; 87081; 93005; 93306; 94640; 97166; 99251; C1713; C1776; J7050; J7120; Q9957; A4216; C8929; G0463; J1940; J2405